=== PATIENT | female | born 1990 | race African-American/Black ===

== ENCOUNTER 2017-03-12 13:50 | Observation (INO) | payer MEDICAID, OTHER ==
[~2017-03-12] VITALS: Ht 165.1 cm; Wt 70.0 kg
[2017-03-12] MEDS ORDERED: SODIUM CHLORIDE 0.9% 1,000 ML IV ONE (15:15)
[2017-03-12] MEDS ORDERED: ACETAMINOPHEN 325MG TABLET PO ONE (15:15)
[2017-03-12 16:18] VITALS: BP 136/81
[2017-03-12] MEDS ORDERED: LACTATED RINGERS 1,000 ML IV SCH (17:15)
[2017-03-12] MEDS ORDERED: TERBUTALINE SULFATE 1MG/ML VIAL SUBCUT NR (19:15)
[2017-03-12 19:57] LABS: CLARITY URINE CLEAR (CLEAR); COLOR URINE YELLOW (YELLOW); GLUCOSE URINE NEGATIVE (NEGATIVE); KETONES URINE 2+ (NEGATIVE); LEUKOCYTE ESTERASE URINE TRACE (NEGATIVE); NITRITE URINE NEGATIVE (NEGATIVE); OCCULT BLOOD URINE NEGATIVE (NEGATIVE); PH URINE 7.5 (4.5-8.0); PROTEIN URINE NEGATIVE (NEGATIVE); SPECIFIC GRAVITY URINE 1.006 (1.005-1.030); UROBILINOGEN URINE 0.2 E.U./dL (0.2-1.0)
[2017-03-12] MEDS ORDERED: PREN-88 PO (21:30)
== END 2017-03-12 21:45 | disposition home or self-care (01) ==
LOC: ER 14:03 → UNDOADMIN 15:33 → L&D 15:33 → EDSTATUS 16:41 → L&D 16:42 → UNDODISOB 21:45
PROVIDERS: ADMIT Obstetrics & Gynecology; ATTEND Obstetrics & Gynecology
DX: O9A.213 Injury, poisoning and certain other consequences of external causes complicating pregnancy, third trimester (principal); S16.1XXA Strain of muscle, fascia and tendon at neck level, initial encounter; V43.52XA Car driver injured in collision with other type car in traffic accident, initial encounter; Y93.89 Activity, other specified; Y92.89 Other specified places as the place of occurrence of the external cause; Y99.8 Other external cause status; Z3A.35 35 weeks gestation of pregnancy
CPT/HCPCS: 76805; 76818; 81001; 96360; 96372; 99281; G0378; J3105; J7030; J7120; 96361